=== PATIENT | male | born 1995 | race Caucasian/White ===

== ENCOUNTER 2023-06-12 13:51 | Emergency (ER) | payer OTHER ==
[~2023-06-12] VITALS: Ht 162.6 cm; Wt 99.8 kg
[2023-06-12] MEDS ORDERED: ONDANSETRON HCL/PF 4 MG/2 ML VIAL ONE (14:50)
[2023-06-12] MEDS ORDERED: MORPHINE SULFATE INJ 4 MG/ML DISP.SYRIN ONE (14:50)
[2023-06-12] MEDS ORDERED: KETOROLAC TROMETHAMINE INJ 30 MG/ML VIAL ONE (14:50)
[2023-06-12] MEDS: MORPHINE SULFATE INJ 2 MG/ML DISP.SYRIN IV ONE (14:50)
[2023-06-12] MEDS: ONDANSETRON HCL/PF - ER 4 MG/2 ML VIAL IV ONE (14:56)
[2023-06-12] MEDS: KETOROLAC TROMETHAMINE INJ 30 MG/ML VIAL IV ONE (14:56)
[2023-06-12 15:00] LABS: BASOPHILS # (AUTO) 0.1 K/uL (0.0-0.2); BASOPHILS % (AUTO) 0.7 % (0.0-2.0); EOSINOPHILS # (AUTO) 0.1 K/uL (0.0-0.7); EOSINOPHILS % (AUTO) 1.3 % (0.0-6.0); HEMATOCRIT 45 % (39-51); HEMOGLOBIN 15.2 g/dL (13.5-17.5); LYMPHOCYTES # (AUTO) 3.8 K/uL (0.8-4.8); LYMPHOCYTES % (AUTO) 36.9 % (20.0-44.0); MEAN CORPUSCULAR HEMOGLOBIN 31 PG (26.0-33.0); MEAN CORPUSCULAR HGB CONC 34 g/dl (31.0-36.0); MEAN CORPUSCULAR VOLUME 91 fL (80-96); MONOCYTES # (AUTO) 0.9 K/uL (0.1-1.30); MONOCYTES % (AUTO) 8.6 % (2.0-12.0); NEUTROPHILS # (AUTO) 5.5 K/uL (1.8-8.9); NEUTROPHILS % (AUTO) 52.5 % (43.0-81.0); PLATELET COUNT (AUTO) 299 K/uL (150-450); RED BLOOD CELL COUNT(AUTO) 4.89 MIL/uL (4.5-6.0); RED CELL DISTRIBUTION WIDTH 12.8 % (11.5-15.0); WHITE BLOOD COUNT (AUTO) 10.4 K/uL (4.3-11.0)
[2023-06-12] MEDS ORDERED: IV NS 0.9% 250 ML IV ONE (15:10)
[2023-06-12] MEDS ORDERED: IOHEXOL-300 100 ML VIAL IV ONE (15:10)
[2023-06-12] MEDS: diphenhydrAMINE HCL 50 MG/ML VIAL IV ONE (15:33)
[2023-06-12] MEDS: methylPREDNISolone SOD SUCC 125 MG/2ML VIAL IV ONE (15:33)
[2023-06-12 16:02] LABS: CALCIUM, SERUM 9.6 mg/dL (8.5-10.1); POTASSIUM 3.5 mmol/L (3.5-5.1)
[2023-06-12 16:07] LABS: APPEARANCE,URINE CLEAR (CLEAR); BILIRUBIN,URINE NEGATIVE (NEGATIVE); BLOOD, URINE NEGATIVE Ery/uL (NEGATIVE); COLOR,URINE YELLOW (YELLOW); KETONES,URINE NEGATIVE (NEGATIVE); LEUKOCYTE ESTERASE ,URINE NEGATIVE (NEGATIVE); NITRITE, URINE NEGATIVE (NEGATIVE); PROTEIN,URINE NEGATIVE (NEGATIVE); UGLUCOSE NEGATIVE (NEGATIVE); UROBILINOGEN,URINE 0.2 EU/dL (0.2)
[2023-06-12 16:11] LABS: ALBUMIN 4.1 g/dL (3.4-5.0); BILIRUBIN,DIRECT 0.1 mg/dL (0.0-0.2); BILIRUBIN,TOTAL 0.3 mg/dL (0.2-1.0); TOTAL PROTEIN, SERUM 8.6 g/dL (6.4-8.2)
[2023-06-12] MEDS ORDERED: CYCL5TAB PO (16:45)
[2023-06-12] MEDS ORDERED: TRAM-351 PO (16:45)
[2023-06-12] MEDS ORDERED: KETO10TA2 PO (16:45)
[2023-06-12 17:00] VITALS: BP 128/77; TEMP 98.3; O2SAT 100
== END 2023-06-12 17:00 | disposition home or self-care (01) ==
LOC: ER 14:07
DX: S30.1XXA Contusion of abdominal wall, initial encounter (principal); R10.32 Left lower quadrant pain; R11.0 Nausea; X58.XXXA Exposure to other specified factors, initial encounter; Y93.89 Activity, other specified; Y92.89 Other specified places as the place of occurrence of the external cause; Y99.8 Other external cause status
CPT/HCPCS: 99285; 74177; 96374; 96375; 85025; 80048; 83690; 80076; 81003; 36415; J2270; J1885; J2405; J7050; Q9967

== ENCOUNTER 2023-07-12 20:49 | Emergency (ER) | payer OTHER ==
[~2023-07-12] VITALS: Ht 167.6 cm; Wt 102.1 kg
[~2023-07-12 20:49] MED LIST: CYCL5TAB PO; KETO10TA2 PO; TRAM-351 PO
[2023-07-12 23:41] VITALS: TEMP 98.5
[2023-07-13 00:31] LABS: BASOPHILS # (AUTO) 0.1 K/uL (0.0-0.2); BASOPHILS % (AUTO) 0.5 % (0.0-2.0); EOSINOPHILS # (AUTO) 0.1 K/uL (0.0-0.7); EOSINOPHILS % (AUTO) 0.6 % (0.0-6.0); HEMATOCRIT 45 % (39-51); HEMOGLOBIN 15.4 g/dL (13.5-17.5); LYMPHOCYTES # (AUTO) 3.8 K/uL (0.8-4.8); MEAN CORPUSCULAR HEMOGLOBIN 31 PG (26.0-33.0); MEAN CORPUSCULAR HGB CONC 34 g/dl (31.0-36.0); MEAN CORPUSCULAR VOLUME 90 fL (80-96); MONOCYTES # (AUTO) 0.7 K/uL (0.1-1.30); NEUTROPHILS # (AUTO) 6.5 K/uL (1.8-8.9); NEUTROPHILS % (AUTO) 58.9 % (43.0-81.0); PLATELET COUNT (AUTO) 293 K/uL (150-450); RED BLOOD CELL COUNT(AUTO) 5.01 MIL/uL (4.5-6.0); RED CELL DISTRIBUTION WIDTH 12.9 % (11.5-15.0); WHITE BLOOD COUNT (AUTO) 11.1 K/uL (4.3-11.0)
[2023-07-13 00:35] LABS: APPEARANCE,URINE CLEAR (CLEAR); BILIRUBIN,URINE NEGATIVE (NEGATIVE); BLOOD, URINE NEGATIVE Ery/uL (NEGATIVE); COLOR,URINE YELLOW (YELLOW); KETONES,URINE NEGATIVE (NEGATIVE); LEUKOCYTE ESTERASE ,URINE NEGATIVE (NEGATIVE); NITRITE, URINE NEGATIVE (NEGATIVE); PROTEIN,URINE NEGATIVE (NEGATIVE); UGLUCOSE NEGATIVE (NEGATIVE); UROBILINOGEN,URINE 0.2 EU/dL (0.2)
[2023-07-13 00:47] LABS: AMPHETAMINE, URINE NEGATIVE (NEGATIVE); BARBITURATE, URINE NEGATIVE (NEGATIVE); BENZODIAZEPINE, URINE NEGATIVE (NEGATIVE); CALCIUM, SERUM 9.2 mg/dL (8.5-10.1); CANNABINOID, URINE NEGATIVE (NEGATIVE); CARBON DIOXIDE 26 mmol/L (21-32); CHLORIDE 101 mmol/L (98-107); COCCAINE, URINE NEGATIVE (NEGATIVE); CREATININE 0.9 mg/dL (0.6-1.3); GLUCOSE 107 mg/dL (74-106); OPIATE, URINE NEGATIVE (NEGATIVE); PHENCYCLIDINE SCREEN,URINE NEGATIVE (NEGATIVE); POTASSIUM 3.3 mmol/L (3.5-5.1); SODIUM SERUM 136 mmol/L (136-145); UREA NITROGEN, BLOOD 9 mg/dL (7-18)
[2023-07-13] MEDS ORDERED: CLONIDINE HCL 0.1 MG TABLET ONE (00:49)
[2023-07-13] MEDS: CLONIDINE HCL 0.1 MG TABLET PO ONE (00:56)
[2023-07-13 01:02] LABS: ALANINE AMINOTRANSFERASE 131 U/L (12-78); ALBUMIN 4.1 g/dL (3.4-5.0); ALKALINE PHOSPHATASE 135 U/L (46-116); ASPARTATE AMINOTRANSFERASE 31 U/L (15-37); BILIRUBIN,TOTAL 0.4 mg/dL (0.2-1.0); TOTAL PROTEIN, SERUM 8.8 g/dL (6.4-8.2)
[2023-07-13 01:03] LABS: NT-PRO BNP < 5 pg/mL (0-125)
[2023-07-13] MEDS ORDERED: POTASSIUM CHLORIDE 20 MEQ TAB.PRT.SR PO ONE (01:19)
[2023-07-13] MEDS: POTASSIUM CHLORIDE 20 MEQ TAB.PRT.SR PO ONE (01:21)
[2023-07-13] MEDS ORDERED: AMLO5TAB4 PO (02:39)
[2023-07-13 02:56] VITALS: BP 132/81; O2SAT 96
== END 2023-07-13 02:56 | disposition home or self-care (01) ==
LOC: ER 20:54
DX: R07.9 Chest pain, unspecified (principal); I10 Essential (primary) hypertension; R51.9 Headache, unspecified; Z79.899 Other long term (current) drug therapy
CPT/HCPCS: 36415; 70450-TC; 71045-TC; 80053-TC; 83880; 84484-TC; 85025-TC; 85378-TC